=== PATIENT | male | born 1990 | race Caucasian/White ===

== ENCOUNTER 2016-12-02 10:01 | Day surgery (SDC) | END 2016-12-02 18:35 | disposition home or self-care (01) | DX: K40.90 Unilateral inguinal hernia, without obstruction or gangrene, not specified as recurrent (principal) | CPT/HCPCS: 49505; 80048; 85025; 85610; 85730; 88302; C1781; J0690; J1885; J2175; J2250; J2270; J2405; J2710; J3010 ==